=== PATIENT | female | born 1960 | race Caucasian/White ===

== ENCOUNTER 2018-05-21 10:38 | Emergency (ER) | payer OTHER ==
[~2018-05-21] VITALS: Ht 162.6 cm; Wt 116.1 kg
[~2018-05-21 10:38] MED LIST: AMLODIPINE BESY10 MG PO; BIOTIN2500 MCG; HYDROCHLOROTHIA25 MG; LEVETIRACETAM500 MG; LEVOTHYROXINE112 MCG PO; LEVOTHYROXINE50 MCG PO; LIOTHYRONINE SO5 MCG; LISINOPRIL10 MG PO; ONCE DAILY1 EACH; OSTEO BI-FLEX1 EAC2; VITAMIN D1000 UNI1 PO
== END 2018-05-21 12:19 | disposition home or self-care (01) ==
LOC: FSED 10:38
DX: R10.13 Epigastric pain (principal); R07.89 Other chest pain; L03.115 Cellulitis of right lower limb; I10 Essential (primary) hypertension; E03.9 Hypothyroidism, unspecified
CPT/HCPCS: 80053; 82553; 84484; 85025; 85379; 93005; 99284